=== PATIENT | male | born 1995 | race Caucasian/White ===

== ENCOUNTER 2018-10-27 05:30 | Day surgery (SDC) | payer BC ==
[~2018-10-27] VITALS: Ht 180.3 cm; Wt 68.0 kg
--- NOTE | 2018-10-27 08:54 | NUR ---
10/27/18 0854 Tamela Sales 0840- PT ARRIVES TO PACU. PT MOVES IN RESPONSE TO VOICE, IS UNABLE TO FOLLOW COMMANDS AND IS MOVING HIS ARMS AROUND TRYING TO TOUCH HIS FACE. EDUCATED PT THAT SURGERY IS OVER AND HE IS IN THE RECOVERY ROOM. PT IS NOT ABLE TO STATE UNDERSTANDING AND FALLS TO SLEEP. RESP EVEN AND UNLABORED. OXYGEN SAT HIGH 90'S TO 100% ON 6L VIA MASK. 0843- PT AWAKENS TRYING TO PULL HIS OXYGEN MASK OFF. PT REMAINS UNABLE TO FOLLOW COMMANDS OR TO STATE UNDERSTANDING THAT SURGERY IS ALL GONE. OXYGEN MASK REMOVED. OXYGEN SAT HIGH 90'S ON RA. RESP EVEN AND UNLABORED. PT TURNS HIMSELF TO HIS LEFT SIDE AND FALLS BACK TO SLEEP. 0847- ICE PACK APPLIED TO PT'S RIGHT GROIN WITH GOWN BETWEEN ICE PACK AND SKIN. 0854- PT REMAINS SLEEPING ON HIS LEFT SIDE. RESP 14 EVEN AND UNLABORED. OXYGEN SAT MID 90'S ON RA.
--- NOTE | 2018-10-27 09:26 | NUR ---
PT ARRIVES TO DS RM 4 FROM PACU AWAKE AND ALERT. PT RESP EVEN AND UNLABORED, SATS ABOVE 94% ON RA. PT DENIES NAUSEA AND RATES PAIN 2/10. PT DRESSING CDI, ICE IN PLACE. PT FAMILY AT BEDSIDE. PT PROVIDED ICED WATER AND CRACKERS.
--- NOTE | 2018-10-27 09:47 | NUR ---
PT PROVIDED JELLO PER REQUEST, TOLERATES WELL. PT UP TO BR WITH RN ASSIST. PT DENIES ANY DIZZINESS OR NAUSEA WITH POSITION CHANGE AND AMBULATION. GAIT STEADY. PT ABLE TO VOID WITH NO PROBLEM. PT BACK IN BED AND PROVIDED WARM BLANKET. SCD'S IN PLACE. IV SALINE LOCKED. CALL LIGHT WITHIN REACH. FAMILY REMAINS AT BEDSIDE.
[2018-10-27] MEDS ORDERED: NORCO 10-325 T1 EACH PO (09:54)
--- NOTE | 2018-10-27 10:44 | NUR ---
1020: DC CRITERIA MET, PT WOULD LIKE TO GO HOME. PAIN MEDICATION SCRIPT GIVEN TO PT GIRLFRIEND TO FILL AT PHARMACY. PT DRESSES SELF WHILE MOTHER WAITS IN HALLWAY AND GIRLFRIEND RERETRIEVES PERSONAL VEHICLE. PT DC'S FROM DS RM 4 TO HOME.
--- NOTE | 2018-10-27 12:46 | NUR ---
PT LAYING IN BED, G FRIEND AT BS. PT IS SOMEWHAT ANXIOUS-EXPLAINED THE PROCESS TO HIM. GOT HIM TO LAUGH SOME. STAFF INTO FINISH PREP FOR SURGERY. EXTENDED A BLESSING, WILL FOLLOW NEEDED
--- NOTE | 2018-10-28 09:30 | OR ---
[facility] [address], [place] [address] Signed DATE OF OPERATION: 10/27/2018 SURGEON: Laurel Sue MD PREOPERATIVE DIAGNOSIS: Reducible right inguinal hernia. POSTOPERATIVE DIAGNOSIS: Reducible right indirect inguinal hernia. PROCEDURES: Right Anastacia onlay mesh inguinal herniorrhaphy. ESTIMATED BLOOD LOSS: None. INDICATIONS: Freddy is a 23-year-old gentleman, who has been dealing with a reducible, but symptomatic right inguinal hernia over the last year. He said particularly in the last month, it has continued to get larger and is now to the top of the scrotum. 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 He said that is interrupting his work. He said it is getting more and more difficult to push the hernia back inside. He finally went to his primary care provider. He was diagnosed with a reducible right inguinal hernia. He was asked to see me with respect to the above. I met with Freddy in the office and I gave him a [employer] brochure on hernias. We looked at that together. He understands the nature of an inguinal hernia. He understands the difference between a primary suture repair and a mesh repair. We also reviewed the expected intraop and postop course. He understands there is risk including, but not limited to bleeding, infection, scarring, change in contour of the skin, damage to the nerves, ischemic orchitis, recurrent hernias, and chronic pain. He has expressed understanding and wished to proceed. PROCEDURE NOTE: I met with Freddy and his in our preop area. We all agreed on the right groin and we marked that appropriately. After this, Freddy was taken in the operating room and placed in a supine position under general endotracheal tube anesthesia. He was given preoperative antibiotics along with subcutaneous heparin. SCDs were utilized. A standard oblique incision was made in the right groin and carried down through the tissue bluntly and with the cautery. The external oblique fascia was opened along its length and developed medially and laterally. The iliohypogastric and ilioinguinal Portions of this report were created using voice recognition software. There may be inadvertent computer error. Please read with context in mind. If there are any questions, please contact me. Electronically Signed By: LAUREL SUE MD 10/28/18 0930 PATIENT NAME: FREDDY MOSES OPERATIVE REPORT DATE OF : [birth year] REPORT #: [id number] PHYSICIAN: LAUREL SUE MD PCP: JAYCEE CHENG REPORT IS CONFIDENTIAL AND NOT TO BE RELEASED WITHOUT AUTHORIZATION [facility] [address], [place] [address] Signed nerves were visualized and protected throughout the case. The cord structures were elevated at the level of pubic tubercle with the help of the Chaparrita drain. His direct space remained intact. We dissected the anteromedial side of the cord structures at the level of deep ring and we immediately encountered his hernia sac. It traveled down to about the level of pubic tubercle. We followed it down to almost a very end and we divided it. We left maybe a cm most of the hernia sac as it was interimly involved with the cord structures. The rest of the cord sac was elevated and then suture ligated at the neck of the deep ring. The sac was amputated and passed off the field. We then used a piece of flat Prolene mesh. We cut a slit in the mesh to accommodate the cord structures at the level of deep ring. The mesh was held in place medially and laterally with the help of running #1 Prolene sutures. There was no undue tension of the mesh around the cord structures at the level of deep ring. After this, local anesthetic was copiously injected in the wound. The wound was irrigated and suctioned out until clear. The external oblique fascia was then closed over the repair with a running 2-0 PDS suture. Adriano's fascia was reapproximated with a running 6-0 fast absorbing plain gut suture. The dermis was reapproximated with interrupted 3-0 subcuticular Monocryl sutures. The skin edges were reapproximated with a running 6-0 fast absorbing plain gut suture. Dry gauze and tape were then applied. Freddy was then awakened from his anesthesia, extubated in the OR, and taken to recovery room in stable condition. Laurel Sue MD ALB/MODL /[id number] cc: KWAKU Mccormick MD Copies: JAYCEE CHENG ANDREW L MD ~ Portions of this report were created using voice recognition software. There may be inadvertent computer error. Please read with context in mind. If there are any questions, please contact me. Electronically Signed By: LAUREL SUE MD 10/28/18 0930 PATIENT NAME: FREDDY MOSES OPERATIVE REPORT DATE OF : [birth year] REPORT #: [id number] PHYSICIAN: LAUREL SUE MD PCP: JAYCEE CHENG REPORT IS CONFIDENTIAL AND NOT TO BE RELEASED WITHOUT AUTHORIZATION
== END 2018-10-27 10:36 | disposition home or self-care (01) ==
LOC: DS 05:30
PROVIDERS: Colon & Rectal Surgery
PROC: 8E0W0CZ Robotic Assisted Procedure of Trunk Region, Open Approach (ICD-10-PCS; 2018-10-27)
PROC: 0YU50JZ Supplement Right Inguinal Region with Synthetic Substitute, Open Approach (ICD-10-PCS; principal; 2018-10-27 06:45)
DX: K40.90 Unilateral inguinal hernia, without obstruction or gangrene, not specified as recurrent (principal); M54.5 Low back pain; G89.29 Other chronic pain; F17.290 Nicotine dependence, other tobacco product, uncomplicated; F12.90 Cannabis use, unspecified, uncomplicated; Z88.2 Allergy status to sulfonamides
CPT/HCPCS: 00830; C1781; J0690; J1100; J1644; J1885; J2250; J2405; J2704; J2765; J3010; J7120